=== PATIENT | male | born 1990 | race Caucasian/White ===

== ENCOUNTER 2019-04-04 18:33 | Emergency (ER) | payer SELFPAY ==
[~2019-04-04] VITALS: Ht 177.8 cm; Wt 83.9 kg
[2019-04-04 18:59] VITALS: BP 122/73; Ht 177.8 cm; Wt 83.9 kg
== END 2019-04-04 20:03 | disposition home or self-care (01) ==
LOC: ED 18:33
DX: Z53.21 Procedure and treatment not carried out due to patient leaving prior to being seen by health care provider (principal)